=== PATIENT | female | born 1985 | race Caucasian/White ===

== ENCOUNTER 2020-11-17 13:08 | Outpatient (REF) | payer OTHER, SELFPAY ==
[2020-11-17 13:32] LABS: COVID-19 Test Negative (Negative)
== END 2020-11-17 13:09 | disposition home or self-care (01) ==
LOC: HO.LAB 13:08
PROVIDERS: Visit Provider Internal Medicine
DX: Z20.828 Contact with and (suspected) exposure to other viral communicable diseases (principal)
CPT/HCPCS: 87635; C9803

== ENCOUNTER 2021-01-13 11:13 | Outpatient (REF) | payer OTHER, SELFPAY ==
[2021-01-13 11:31] LABS: COVID-19 Test Negative (Negative)
== END 2021-01-13 11:14 | disposition home or self-care (01) ==
LOC: HO.EMPCOV 11:13
PROVIDERS: Visit Provider Internal Medicine
DX: Z20.822 Contact with and (suspected) exposure to COVID-19 (principal)
CPT/HCPCS: 36415; 87635; C9803

== ENCOUNTER 2021-02-28 13:27 | Outpatient (REF) | payer OTHER, SELFPAY ==
[2021-02-28 14:20] LABS: MANUAL DIFF FLAG NO
[2021-02-28 14:34] LABS: Basophils Absolute Auto 0.1 X10*3/uL (0.0-0.2); Eosinophils Absolute Auto 0.8 X10*3/uL (0.0-0.4); Eosinophils Percent Auto 8.9 % (0-4); Hematocrit 42.9 % (37-47); Hemoglobin 14.8 g/dl (12.0-16.0); Imm Gran Abs Auto 0.04 X10*3/uL (0.00-0.03); Imm Gran Pct Auto 0.5 % (0.0-0.4); Lymphocytes Absolute Auto 1.8 X10*3/uL (1.2-4.9); Lymphocytes Percent Auto 20.6 % (20-40); Mean Corpuscular HGB Conc 34.5 g/dl (31.0-35.0); Mean Corpuscular Hemoglobin 32.2 pg (27.0-33.0); Mean Corpuscular Volume 93.3 fL (80-98); Mean Platelet Volume 10.3 fL (9.4-12.3); Monocytes Absolute Auto 0.6 X10*3/uL (0.1-1.2); Monocytes Percent Auto 6.5 % (2-11); Neutrophils Absolute Auto 5.5 X10*3/uL (2.0-8.3); Neutrophils Percent Auto 62.5 % (45-73); Platelet Count 290 X10*3/uL (160-400); Red Cell Distribution Width 11.9 % (11.0-16.0); White Blood Count 8.8 X10*3/uL (4.8-10.8)
[2021-02-28 14:41] LABS: Estimated Average Glucose 88 mg/dL; Hemoglobin A1c % 4.7 %
[2021-02-28 14:46] LABS: Alanine Aminotransferase 34 U/L (0-31); Albumin Level 4.5 g/dL (3.5-5.0); Alkaline Phosphatase 90 U/L (39-117); Anion Gap 11 (12-20); Aspartate Amino Transferase 24 U/L (5-31); Bilirubin Total 0.8 mg/dL (0.0-1.0); Blood Urea Nitrogen 9 mg/dL (9-16); Calcium 9.1 mg/dL (8.4-10.2); Carbon Dioxide 27 mmol/L (22-29); Chloride 105 mmol/L (96-108); Estimated Glomerular Filt Rate > 60; Glucose Random 92 mg/dL (60-115); Potassium 4.3 mmol/L (3.3-5.1); Sodium 139 mmol/L (135-145); Total Protein 7.6 g/dL (6.5-8.0)
[2021-02-28 15:07] LABS: Vitamin D 25-OH Total 21.3 ng/mL (>30)
== END 2021-02-28 13:28 | disposition home or self-care (01) ==
LOC: HO.LAB 13:27
PROVIDERS: PCP Family Medicine; Visit Provider Family Medicine
DX: R10.11 Right upper quadrant pain (principal); E28.2 Polycystic ovarian syndrome; E55.9 Vitamin D deficiency, unspecified
CPT/HCPCS: 36415; 80053; 82306; 83036; 85025

== ENCOUNTER 2021-03-06 09:07 | Outpatient (REF) | payer OTHER, SELFPAY ==
--- NOTE | ~2021-03-06 | US_ITS ---
EXAMINATION: US ABDOMEN COMPLETE CLINICAL INFORMATION: Right upper quadrant pain. COMPARISON: Ultrasound abdomen 02/02/2020. CT abdomen pelvis 07/13/2019. TECHNIQUE: Real-time imaging of the abdominal viscera. FINDINGS: PANCREAS: The body of the pancreas partially visualized and appears unremarkable. Rest of the entire pancreas is obscured by overlying gas. ABDOMINAL AORTA: The proximal, mid, and distal segments are normal in caliber. INFERIOR VENA CAVA: Visualized portions are normal. LIVER: The liver is diffusely echogenic. The liver is normal in size. The liver contour is normal. No focal hepatic lesion. There is no intrahepatic biliary duct dilatation seen. GALLBLADDER: The gallbladder is physiologically distended. Multiple echogenic mobile gallstones are present. No evidence of gallbladder wall thickening or pericholecystic fluid. COMMON BILE DUCT: Normal in caliber measuring 0.4 cm in diameter. RIGHT KIDNEY: Normal. No hydronephrosis. No renal calculi or focal parenchymal lesions. The kidney measures 11.4 cm in maximum dimension. LEFT KIDNEY: Normal. No hydronephrosis. No renal calculi or focal parenchymal lesions. The kidney measures 12.7 cm in maximum dimension. SPLEEN: The spleen measures 11.7 cm in maximum dimension. FREE FLUID: None. US/US abdomen complete IMPRESSION: Diffusely echogenic liver but no focal lesion or intrahepatic ductal dilatation. Cholelithiasis without wall thickening or pericholecystic fluid collection. Rest of the abdominal ultrasound is unremarkable.
== END 2021-03-06 09:08 | disposition home or self-care (01) ==
LOC: HO.US 09:07
PROVIDERS: Visit Provider Family Medicine
DX: R10.11 Right upper quadrant pain (principal)
CPT/HCPCS: 76700

== ENCOUNTER → 2021-07-25 10:59 | Outpatient (BNVA) | payer OTHER, SELFPAY | PROVIDERS: PCP Family Medicine; Visit Provider Obstetrics & Gynecology ==

== ENCOUNTER 2022-01-11 08:05 | Outpatient (REF) | payer OTHER, SELFPAY ==
[2022-01-13 15:56] LABS: TS Negative Control Passed; TS Panel A 0; TS Panel B 0; TS Positive Control Passed; TSpotTB Negative (Negative)
== END 2022-01-11 08:06 | disposition home or self-care (01) ==
LOC: HO.LAB 08:05
PROVIDERS: PCP Family Medicine; Visit Provider Dermatology
DX: Z11.1 Encounter for screening for respiratory tuberculosis (principal); L40.0 Psoriasis vulgaris; Z79.899 Other long term (current) drug therapy
CPT/HCPCS: 36415; 86481

== ENCOUNTER 2022-09-11 09:12 | Outpatient (REF) | payer OTHER, SELFPAY ==
[2022-09-11 11:42] LABS: Hematocrit 43.1 % (37.0-47.0); Hemoglobin 15.2 g/dl (12.0-16.0); Mean Corpuscular HGB Conc 35.3 g/dl (31.0-35.0); Mean Corpuscular Hemoglobin 33.7 pg (27.0-33.0); Mean Corpuscular Volume 95.6 fL (80.0-98.0); Mean Platelet Volume 10.4 fL (9.4-12.3); Platelet Count 287 X10*3/uL (160-400); Red Blood Count 4.51 X10*6/uL (4.20-5.50); Red Cell Distribution Width 12.1 % (11.0-16.0); White Blood Count 6.4 X10*3/uL (4.8-10.8)
[2022-09-11 12:17] LABS: Alanine Aminotransferase 52 U/L (0-31); Albumin Level 4.7 g/dL (3.5-5.0); Alkaline Phosphatase 89 U/L (39-117); Anion Gap 17 (12-20); Aspartate Amino Transferase 32 U/L (5-31); Bilirubin Total 0.7 mg/dL (0.0-1.0); Blood Urea Nitrogen 8 mg/dL (9-16); Calcium 9.5 mg/dL (8.4-10.2); Carbon Dioxide 24 mmol/L (22-29); Chloride 101 mmol/L (96-108); Cholesterol 213 mg/dL; Estimated Glomerular Filt Rate > 60; Glucose Fasting 104 mg/dL (60-99); HDL Cholesterol 50 mg/dL; LDL Cholesterol Calculated 145 mg/dl; Potassium 4.3 mmol/L (3.3-5.1); Sodium 138 mmol/L (135-145); Total Protein 7.9 g/dL (6.5-8.0); Triglycerides 93 mg/dL
[2022-09-11 12:36] LABS: TSH reflex Free T4 2.85 uIU/mL (0.32-4.0)
[2022-09-11 12:45] LABS: Folate 2.3 ng/mL (> or = 4.0); Vitamin B12 500 pg/mL (200-900)
[2022-09-16 17:52] LABS: Vitamin D 25-OH, D2 <4 ng/mL; Vitamin D 25-OH, D3 20 ng/mL; Vitamin D 25-OH, Total 20 ng/mL (30-100)
== END 2022-09-11 09:13 | disposition home or self-care (01) ==
LOC: HO.WFDLDS 09:12
PROVIDERS: Visit Provider Hospitalist
DX: Z00.00 Encounter for general adult medical examination without abnormal findings (principal); L65.9 Nonscarring hair loss, unspecified; E55.9 Vitamin D deficiency, unspecified
CPT/HCPCS: 36415; 80053; 80061; 82306; 82607; 82746; 84443; 85027

== ENCOUNTER 2023-01-29 08:53 | Outpatient (REF) | payer OTHER, SELFPAY ==
--- NOTE | ~2023-01-29 | CT_ITS ---
EXAMINATION: CT SINUS WITHOUT CONTRAST CLINICAL INFORMATION: Nasal polyps. COMPARISON: None available. TECHNIQUE: Axial 2 mm thin and reformatted 2 mm thin sagittal and coronal images of the sinuses were obtained without contrast. This CT examination was performed using dose optimization techniques as appropriate, variously including the following: *Automated exposure control *Adjustment of mA and/or kV according to patient size (this includes techniques or standardized protocols for targeted exams where dose is matched to indication/reason for exam; i.e. extremities or head) *Use of iterative reconstruction technique DLP: 286 mGy-cm FINDINGS: There is normal aeration of bilateral paranasal sinuses without any mucoperiosteal thickening or air-fluid levels. Bilateral ostiomeatal complexes and frontoethmoidal recess are widely patent. The bony sinus clark are intact. The turbinates are somewhat symmetrical and unremarkable. The nasopharyngeal and nasal cavity airway is patent. There is mild deviation of the mid nasal septum to the left. The visualized optic globes, optic nerves, intraconal and extraconal soft tissues are normal. The preseptal and post septal soft tissues are normal. The bony orbits are normal. The mastoid sinuses are clear and patent. The maxillofacial and nasal soft tissues are unremarkable. CT/CT sinus wo IV con IMPRESSION: Unremarkable CT sinus exam.
--- NOTE | ~2023-01-29 | CT_ITS ---
EXAMINATION: CT INTERNAL AUDITORY CANALS WITH CONTRAST CLINICAL INFORMATION: Conductive asymmetric hearing loss. COMPARISON: None available. TECHNIQUE: Contiguous axial imaging was performed from the skull base to vertex following the administration of 100 mL of Omnipaque [address] examination was performed using dose optimization techniques as appropriate, variously including the following: *Automated exposure control *Adjustment of mA and/or kV according to patient size (this includes techniques or standardized protocols for targeted exams where dose is matched to indication/reason for exam; i.e. extremities or head) *Use of iterative reconstruction technique DLP: 286 mGy-cm FINDINGS: RIGHT IAC: There is normal aeration of the mastoid sinuses and the entire middle ear and external auditory canal. The middle ear ossicles are maintained normal. No soft tissue mass or fluid is seen. The visualized internal auditory canal, semicircular canal and the optic capsule are normal. The bony clark of the middle and inner ear are unremarkable. LEFT ICA: There is normal aeration of the middle ear and the mastoid sinuses with trace mucosal thickening lateral and posterior mastoid sinus. Otherwise, unremarkable mastoid sinus. The middle ear ossicles are intact. No bony erosive changes are seen. The visualized semicircular canals, optic capsule and the internal auditory canal are normal and symmetrical to the right side. No bony erosive changes. No sclerosis is seen. The petrous bone bilaterally and appears unremarkable. There is no soft tissue mass in the parapharyngeal and prevertebral soft tissues. CT/CT internal auditory canals BI IMPRESSION: Unremarkable bilateral CT IACs.
== END 2023-01-29 08:54 | disposition home or self-care (01) ==
LOC: HO.CT 08:53
PROVIDERS: PCP Family Medicine; Visit Provider Otolaryngology
DX: J33.0 Polyp of nasal cavity (principal)
CPT/HCPCS: 70480; 70486